=== PATIENT | male | born 1950 | race African-American/Black ===

== ENCOUNTER 2017-07-02 13:16 | Inpatient (IN) | payer OTHER, MEDICAID, MEDICARE ==
--- NOTE | 2017-07-02 13:23 | ED Physician Chart ---
ED Chief Complaint/HPI - Patient Information Date Seen:: 07/02/17 Time Seen:: 13:15 Chief Complaint:: Failure to Thrive History of Present Illness:: onset x one week of failure to thrive, weakness, and dizziness; no report of trauma, LOC, ALOC, AMS, H/As, neck pain, C/P, SOB, Abd/Flank Pain, A/N/V/D/C, fever, chills, or urinary s/s Historian:: Patient, EMS Review:: Nurse's Note Reviewed, EMS run form Reviewed ED Review of Systems - Review of Systems General/Constitutional: Fever, No chills, No weight loss, No weakness, No diaphoresis, No edema, No loss of appetite Skin: No skin lesions, No rash, No bruising Head: No headache, No light-headedness Eyes: No loss of vision, No pain, No diplopia ENT: No earache, No nasal drainage, No sore throat, No tinnitus Neck: No neck pain, No swelling, No thyromegaly, No stiffness, No mass noted Cardio Vascular: No chest pain, No palpitations, No PND, No orthopnea, No edema Pulmonary: No SOB, No cough, No sputum, No wheezing GI: No nausea, No vomiting, No diarrhea, No pain, No melena, No hematochezia, No constipation, No hematemesis G/U: No dysuria, No frequency, No hematuria Musculoskeletal: No bone or joint pain, No back pain, No muscle pain Endocrine: Polyuria, Polydipsia Psychiatric: No prior psych history, No depression, No anxiety, No suicidal ideation Hematopoietic: No bruising, No lymphadenopathy Allergic/Immuno: No urticaria, No angioedema Neurological: No syncope, No focal symptoms, Weakness, No paresthesia, Headache , No seizure, Dizziness, Confusion, Vertigo ED Past Medical History - Past Medical History Obtainable: Yes Past Medical History: HTN, DM, Other (UTI; Spinal Stenosis) Family History: Diabetes Melitus, HTN Social History: Non Smoker, No Alcohol, No Drug Use, Single, Care Facility Surgical History: None Psychiatricy History: None Medication: Reviewed ED Physical Exam - Physical Examination General/Constitutional: Awake, Well-developed, well-nourished, Alert, No distress, GCS 15, Non-toxic appearing, Ambulatory Head: Atraumatic Eyes: Lids, conjuctiva normal, PERRL, EOMI Skin: Nl inspection, No rash, No skin lesions, No ecchymosis, Well hydrated, No lymphadenopathy ENMT: External ears, nose nl, Nasal exam nl, Lips, teeth, gums nl Neck: Nontender, Full ROM w/o pain, No JVD, No nuchal rigidity, No bruit, No mass, No stridor Respiratory: Nl effort/Exclusion, Clear to Auscultation, No Wheeze/Rhonchi/Rales Cardio Vascular: RRR, No murmur, gallop, rubs, NL S1 S2 GI: No tenderness/rebounding/guarding, No organomegaly, No hernia, Normal BS's, Nondistended, No mass/bruits, No McBurney tenderness : No CVA tenderness Extremities: No tenderness or effusion, Full ROM, normal strength in all extremities, No edema, Normal digits & nails Neuro/Psych: Alert/oriented, DTR's symmetric, Normal sensory exam, Normal motor strength, Judgement/insight normal, Mood normal, Normal gait, No focal deficits Misc: Normal back, No paraspinal tenderness ED Septic Shock - . Is Septic Shock (SBP<90, OR Lactate>4 mmol\L) present?: No ED Reassessment (Disposition) - Reassessment Reassessment Condition:: Improved - Diagnosis Diagnosis:: UTI; Urosepsis; Sepsis; Dehydration - Aftercare/Follow up Instructions Aftercare/Follow-Up Instructions:: Counseled pt regarding lab results/diagnosis & need follow up, Counseled pt & family regarding lab results/diagnosis & need follow up - Patient Disposition Discharge/Transfer:: Acute Care w/in this hosp Accepting Physician:: Dr. Davis Time Called:: [id number] Time Responded:: 13:45 Admitted to:: Med/Surg Spoke to:: Dr. Davis Admitting Medical Physician:: Dr. Davis Condition at Disposition:: Stable, Improved
[2017-07-02] MEDS ORDERED: Sodium Chloride 0.9% 1,000 ML IV ONE (13:26)
[2017-07-02 13:40] LABS: % BASOPHILS 0.7 % (0.0-2.0); % EOSINOPHILS 6.7 % (0.0-5.0); % LYMPHOCYTES 36.1 % (20.0-50.0); % MONOCYTES 8.1 % (2.0-10.0); % NEUTROPHILS 48.4 % (40.0-80.0); HEMATOCRIT 39.1 % (41.0-60); MEAN CELL VOLUME 86.9 fl (80-99); MEAN CORPUSCULAR HGB CONC 33.3 pg (28.0-36.0); MEAN PLATELET VOLUME 7.4 fl; NEUTROPHILE ABSOLUTE 2.4 Th/cmm (1.8-8.0); PLATELET COUNT 289 Th/cmm (150-400); RED CELL DISTRIBUTION WIDTH 13.2 % (11.5-20.0); WHITE BLOOD COUNT 4.9 Th/cmm (4.8-10.8)
--- NOTE | 2017-07-02 13:53 | Diagnostic Imaging Report ---
Portable chest x-ray History: Pain Allowing for portable technique the heart size is normal. No focal pulmonary parenchymal processes. No hilar or mediastinal abnormalities. Degenerative changes seen throughout the spine. Impression: No acute abnormalities.
[2017-07-02 13:55] LABS: INR 1.22 (0.5-1.4); PROTHROMBIN TIME (TEST) 12.8 SECONDS (9.5-11.5)
[2017-07-02] MEDS ORDERED: cefTRIAXone 1 GM in Sodium Chloride 0.9% 50 ML IV ONE (13:55)
[2017-07-02 13:59] LABS: ALB/GLOB RATIO 1.2 (1.0-1.8); ALKALINE PHOSPHATASE 74 U/L (34-104); ANION GAP 6.6 (7.0-16.0); BUN - UREA NITROGEN 25 mg/dL (7-25); BUN/CREATININE RATIO 31.3; CALCIUM SERUM 9.4 mg/dL (8.6-10.3); CARBON DIOXIDE 27.9 mEq/L (21.0-31.0); CHLORIDE 105 mEq/L (98-107); CHOLESTEROL 111 mg/dL (<200); CREATININE - SERUM 0.8 mg/dL (0.7-1.3); GLUCOSE 127 mg/dL (70-105); POTASSIUM SERUM 3.5 mEq/L (3.5-5.1); SGOT 32 U/L (13-39); SGPT/ALT 38 U/L (7-52); SODIUM SERUM 136 mEq/L (136-145); TRIGLYCERIDES 78 mg/dL (<150)
[2017-07-02 15:22] LABS: URINE BILIRUBIN NEGATIVE (NEGATIVE); URINE BLOOD SMALL (NEGATIVE); URINE GLUCOSE (UA) NEGATIVE (NEGATIVE); URINE KETONE NEGATIVE (NEGATIVE); URINE PROTEIN 100 mg/dL (NEGATIVE); URINE UROBILINOGEN 0.2 E.U./dL (0.2 - 1.0)
[2017-07-02 15:30] LABS: URINE COLOR YELLOW; URINE EPITHELIAL CELLS FEW /lpf (FEW)
[2017-07-02 15:31] LABS: URINE BACTERIA MANY /hpf (NONE SEEN); URINE WBC >100 /hpf (0-5)
[2017-07-02] MEDS ORDERED: Hydrocodone/APAP 10 mg/325 mg Tab PO PRN (17:00)
[2017-07-02] MEDS ORDERED: D5-0.45NS 1,000 ML IV SCH (17:15)
[2017-07-02] MEDS ORDERED: Pneumococcal Vaccine 0.5 mL Vial IM ONE (18:00)
--- NOTE | 2017-07-02 20:16 | History and Physical ---
History of Present Illness - HPI Chief Complaint: failure to thrive,weakness and dizziness for 1 wk HPI: resident of [facility]. 66 year old male , bed bound was feeling weak and dizzy for a week and c/o og burning urination and frequency. 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 No fever. Urine was cloudy with sediments and was referred to ER. Last month he was admitted at [facility] and was treated for UTI. During that admission patient was treated for scabies. Now here for generalised weakness, and UTI. 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 FHX DM-2, HTN Social Hx single, nonsmoker, resident of [facility] Psych Hx Negative Vital Signs: Last Vital Signs Temp 98 F 07/02/17 17:17 Pulse 70 07/02/17 17:17 Resp 17 07/02/17 17:17 BP 115/70 07/02/17 17:17 Pulse Ox 98 07/02/17 17:17 Family Medical History - Family Member Mother History Unknown: Yes Social History Smoke: No Alcohol: None Drugs: None Lives: [facility] Domestic Violence: Negative - Medications Home Medications: Home Medication Medication Instructions Recorded Type Acetaminophen [Tylenol Extra 1,000 mg PO Q4HR PRN 07/02/17 History Strength] Acetaminophen [Tylenol] 650 mg PO Q4HR PRN 07/02/17 History Aspirin [Aspirin Chewable] 81 mg PO DAILY 07/02/17 History Atorvastatin Calcium [Lipitor] 80 mg PO HS 07/02/17 History Bisacodyl [Dulcolax 10 Mg Supp] 10 mg RC DAILY PRN 07/02/17 History Cephalexin [Keflex] 500 mg PO QID 07/02/17 History Cranberry Fruit Concentrate 450 mg PO DAILY 07/02/17 History [Cranberry] Docusate Sodium [Colace] 100 mg PO DAILY 07/02/17 History Finasteride [Proscar*] 5 mg PO DAILY 07/02/17 History Fleet Enema [Fleet Enema] 135 ml RC Q48H PRN 07/02/17 History Magnesium Hydroxide [Milk of 30 ml PO HS 07/02/17 History Magnesia] Metoprolol Tartrate [Lopressor] 12.5 mg PO Q12H 07/02/17 History Tamsulosin HCl [Flomax] 0.8 mg PO DAILY 07/02/17 History - Allergies Allergies/Adverse Reactions: Allergies Allergy/AdvReac Type Severity Reaction Status Date / Time No Known Allergies Allergy Verified 07/02/17 13:38 Review of Systems - Review of Systems Review of Systems: Neurological no syncope, dizziness present, weakness present General on and off fever, no chills, weakness for 1 wk skin rash on the left upper exxtrimity Head no headache vision no change ENT no earache neck no neck pain G/U dysuria, polyuria and polydipsia Allergic no urticaria Constitutional: Report: No Significant (none) Eyes: Report: No Significant (none) ENT: Report: No Significant (none) Respiratory: Report: No Significant (none), Cough, Dry, Shortness of Breath, Hemoptysis, SOB with Excertion, Pleuritic Pain, Sputum, Wheezing, Other Cardiovascular: Report: No Significant (none), Chest Pain, Palpitations, Orthopnea, Paroxysmal Noc. Dyspnea, Edema, Light Headedness, Other Gastrointestinal: Report: No Significant (none), Nausea, Vomiting, Abdominal Pain, Diarrhea, Constipation, Melena, Hematochezia, Other Genitourinary: Report: Dysuria (dysuria) Musculoskeletal: Report: Other (weakness) Skin: Report: Rash (noted) Neurological: Report: No Significant (alert ) Physical Exam - Physical Exam HEENT: Report: Ears Nose Throat within normal limits, Pharnyx within normal limits (normal), Ectectic Sclera, Pale Conjunctiva, Purulent Nasal Drainage, Pharyngeal Erythema and Exudates Noted Neck: Report: Within normal limits Cardiovascular Systems: Report: Regular, Rate and Rhythm, no murmurs noted Respiratory: Report: Breath Sounds are within normal limits, Clear to Auscultation of lung landry (normal) Abdomen: Report: Non-tender to palpation (normal), Bowel Sounds are within normal limits (normal) Back: Report: Inspection of back is within normal limits., CVA Tenderness noted on the right flank (none), CVA Tenderness noted on the left flank (none) Extremities: Report: Non-tender to palpation., Patient had full range of motion , No pedal edema was noted on inspection (patient has rightsided weakness due to stroke) Skin: Report: Skin Rash noted (left upper extrimity rash noted) Neuro/Psych: Report: Mood affect is within normal limits (alert, oriented, verbal with slurred spech), A+Ox3, CN II-XII intact, No sensory deficit - Lab Results All Lab Results last 24 hours: Laboratory Last Values WBC 4.9 Th/cmm (4.8-10.8) 07/02/17 13:33 RBC 4.50 Mil/cmm (4.30-5.70) 07/02/17 13:33 Hgb 13.0 gm/dL (12-16) 07/02/17 13:33 Hct 39.1 % (41.0-60) L 07/02/17 13:33 MCV 86.9 fl (80-99) 07/02/17 13:33 MCH 29.0 pg (26.0-30.0) 07/02/17 13:33 MCHC Differential 33.3 pg (28.0-36.0) 07/02/17 13:33 RDW 13.2 % (11.5-20.0) 07/02/17 13:33 Plt Count 289 Th/cmm (150-400) 07/02/17 13:33 MPV 7.4 fl 07/02/17 13:33 Neutrophils % 48.4 % (40.0-80.0) 07/02/17 13:33 Lymphocytes % 36.1 % (20.0-50.0) 07/02/17 13:33 Monocytes % 8.1 % (2.0-10.0) 07/02/17 13:33 Eosinophils % 6.7 % (0.0-5.0) H 07/02/17 13:33 Basophils % 0.7 % (0.0-2.0) 07/02/17 13:33 PT 12.8 SECONDS (9.5-11.5) H 07/02/17 13:33 INR 1.22 (0.5-1.4) 07/02/17 13:33 PTT (Actin FS) 27.6 SECONDS (26.0-38.0) 07/02/17 13:33 Sodium 136 mEq/L (136-145) 07/02/17 13:33 Potassium 3.5 mEq/L (3.5-5.1) 07/02/17 13:33 Chloride 105 mEq/L (98-107) 07/02/17 13:33 Carbon Dioxide 27.9 mEq/L (21.0-31.0) 07/02/17 13:33 Anion Gap 6.6 (7.0-16.0) L 07/02/17 13:33 BUN 25 mg/dL (7-25) 07/02/17 13:33 Creatinine 0.8 mg/dL (0.7-1.3) 07/02/17 13:33 Est GFR ( Amer) > 60.0 ml/min (>90) 07/02/17 13:33 Est GFR (Non-Af Amer) > 60.0 ml/min 07/02/17 13:33 BUN/Creatinine Ratio 31.3 07/02/17 13:33 Glucose 127 mg/dL (70-105) H 07/02/17 13:33 Whole Bld Lactic Acid 0.58 mmol/L (0.60-1.99) L 07/02/17 13:33 Calcium 9.4 mg/dL (8.6-10.3) 07/02/17 13:33 Total Bilirubin 1.0 mg/dL (0.3-1.0) 07/02/17 13:33 AST 32 U/L (13-39) 07/02/17 13:33 ALT 38 U/L (7-52) 07/02/17 13:33 Alkaline Phosphatase 74 U/L (34-104) 07/02/17 13:33 Creatine Kinase 168 U/L (30-223) 07/02/17 13:33 Troponin I < 0.01 ng/mL (0.01-0.05) L 07/02/17 13:33 C-Reactive Protein 0.7 mg/dL (0.0-0.9) 07/02/17 13:33 B-Natriuretic Peptide < 5.0 pg/mL (5.0-100.0) L 07/02/17 13:33 Total Protein 6.4 gm/dL (6.0-8.3) 07/02/17 13:33 Albumin 3.5 gm/dL (4.2-5.5) L 07/02/17 13:33 Globulin 2.9 gm/dL 07/02/17 13:33 Albumin/Globulin Ratio 1.2 (1.0-1.8) 07/02/17 13:33 Triglycerides 78 mg/dL (<150) 07/02/17 13:33 Cholesterol 111 mg/dL (<200) 07/02/17 13:33 LDL Cholesterol Direct 63 mg/dL (75-193) L 07/02/17 13:33 HDL Cholesterol 36 mg/dL (23-92) 07/02/17 13:33 Urine Source CLEAN C 07/02/17 14:21 Urine Color YELLOW 07/02/17 14:21 Urine Clarity CLOUDY (CLEAR) 07/02/17 14:21 Urine pH 6.0 (4.6 - 8.0) 07/02/17 14:21 Ur Specific [place] 1.025 (1.005-1.030) 07/02/17 14:21 Urine Protein 100 mg/dL (NEGATIVE) H 07/02/17 14:21 Urine Glucose (UA) NEGATIVE mg/dL (NEGATIVE) 07/02/17 14:21 Urine Ketones NEGATIVE mg/dL (NEGATIVE) 07/02/17 14:21 Urine Blood SMALL (NEGATIVE) H 07/02/17 14:21 Urine Nitrate NEGATIVE (NEGATIVE) 07/02/17 14:21 Urine Bilirubin NEGATIVE (NEGATIVE) 07/02/17 14:21 Urine Urobilinogen 0.2 E.U./dL (0.2 - 1.0) 07/02/17 14:21 Ur Leukocyte Esterase MODERATE (NEGATIVE) H 07/02/17 14:21 Urine RBC 2-5 /hpf (0-5) H 07/02/17 14:21 Urine WBC >100 /hpf (0-5) H 07/02/17 14:21 Ur Epithelial Cells FEW /lpf (FEW) 07/02/17 14:21 Urine Bacteria MANY /hpf (NONE SEEN) 07/02/17 14:21 - Assessment Assessment: Current Active Problems Problem Status Onset R/O UTI, POOR ORAL INTAKE Acute - Plan Plan: continue fluid management antibiotics as per ID ID consult Dr Matt Pepe Diet soft mechanical, feeder 1:1 Urine culture to follow
[2017-07-02] MEDS: D5-0.45NS 1,000 ML IV SCH (20:31)
[2017-07-03] MEDS: D5-0.45NS 1,000 ML IV SCH ×2 (05:37→18:29)
[2017-07-03 09:11] LABS: % BASOPHILS 2.7 % (0.0-2.0); % EOSINOPHILS 5.2 % (0.0-5.0); % LYMPHOCYTES 30.7 % (20.0-50.0); % MONOCYTES 6.3 % (2.0-10.0); % NEUTROPHILS 55.1 % (40.0-80.0); HEMATOCRIT 36.8 % (41.0-60); HEMOGLOBIN 12.6 gm/dL (12-16); MEAN CELL VOLUME 85.6 fl (80-99); MEAN CORPUSCULAR HEMOGLOBIN 29.2 pg (26.0-30.0); MEAN CORPUSCULAR HGB CONC 34.1 pg (28.0-36.0); MEAN PLATELET VOLUME 7.4 fl; NEUTROPHILE ABSOLUTE 2.7 Th/cmm (1.8-8.0); PLATELET COUNT 276 Th/cmm (150-400); RED BLOOD COUNT 4.29 Mil/cmm (4.30-5.70); RED CELL DISTRIBUTION WIDTH 13.1 % (11.5-20.0); WHITE BLOOD COUNT 4.8 Th/cmm (4.8-10.8)
[2017-07-03 09:36] LABS: ALB/GLOB RATIO 1.1 (1.0-1.8); ALKALINE PHOSPHATASE 69 U/L (34-104); ANION GAP 7.5 (7.0-16.0); BILIRUBIN,TOTAL 0.8 mg/dL (0.3-1.0); BUN - UREA NITROGEN 22 mg/dL (7-25); BUN/CREATININE RATIO 27.5; CALCIUM SERUM 8.9 mg/dL (8.6-10.3); CARBON DIOXIDE 28.2 mEq/L (21.0-31.0); CHLORIDE 106 mEq/L (98-107); CREATININE - SERUM 0.8 mg/dL (0.7-1.3); GLUCOSE 134 mg/dL (70-105); POTASSIUM SERUM 3.7 mEq/L (3.5-5.1); SGOT 27 U/L (13-39); SGPT/ALT 34 U/L (7-52); SODIUM SERUM 138 mEq/L (136-145)
[2017-07-03] MEDS: INSULIN ASPART SLIDING SCALE 100 UNITS/ML UNIT SUBQ SCH ×2 (09:40→18:38)
--- NOTE | 2017-07-03 11:05 | General Progress Note ---
Subjective - Review of Systems Service Date: 07/03/17 Subjective: Awake, alert. NAD. Lying in the bed. eating mechanical soft diet well. Accuchecks decresed to once a day. Objective - Results Result Diagrams: 07/03/17 08:50 07/03/17 08:50 Recent Labs: Laboratory Last Values WBC 4.8 Th/cmm (4.8-10.8) 07/03/17 08:50 RBC 4.29 Mil/cmm (4.30-5.70) L 07/03/17 08:50 Hgb 12.6 gm/dL (12-16) 07/03/17 08:50 Hct 36.8 % (41.0-60) L 07/03/17 08:50 MCV 85.6 fl (80-99) 07/03/17 08:50 MCH 29.2 pg (26.0-30.0) 07/03/17 08:50 MCHC Differential 34.1 pg (28.0-36.0) 07/03/17 08:50 RDW 13.1 % (11.5-20.0) 07/03/17 08:50 Plt Count 276 Th/cmm (150-400) 07/03/17 08:50 MPV 7.4 fl 07/03/17 08:50 Neutrophils % 55.1 % (40.0-80.0) 07/03/17 08:50 Lymphocytes % 30.7 % (20.0-50.0) 07/03/17 08:50 Monocytes % 6.3 % (2.0-10.0) 07/03/17 08:50 Eosinophils % 5.2 % (0.0-5.0) H 07/03/17 08:50 Basophils % 2.7 % (0.0-2.0) H 07/03/17 08:50 PT 12.8 SECONDS (9.5-11.5) H 07/02/17 13:33 INR 1.22 (0.5-1.4) 07/02/17 13:33 PTT (Actin FS) 27.6 SECONDS (26.0-38.0) 07/02/17 13:33 Sodium 138 mEq/L (136-145) 07/03/17 08:50 Potassium 3.7 mEq/L (3.5-5.1) 07/03/17 08:50 Chloride 106 mEq/L (98-107) 07/03/17 08:50 Carbon Dioxide 28.2 mEq/L (21.0-31.0) 07/03/17 08:50 Anion Gap 7.5 (7.0-16.0) 07/03/17 08:50 BUN 22 mg/dL (7-25) 07/03/17 08:50 Creatinine 0.8 mg/dL (0.7-1.3) 07/03/17 08:50 Est GFR ( Amer) > 60.0 ml/min (>90) 07/03/17 08:50 Est GFR (Non-Af Amer) > 60.0 ml/min 07/03/17 08:50 BUN/Creatinine Ratio 27.5 07/03/17 08:50 Glucose 134 mg/dL (70-105) H 07/03/17 08:50 POC Glucose 118 MG/DL (70 - 105) H 07/03/17 09:35 Whole Bld Lactic Acid 0.58 mmol/L (0.60-1.99) L 07/02/17 13:33 Calcium 8.9 mg/dL (8.6-10.3) 07/03/17 08:50 Total Bilirubin 0.8 mg/dL (0.3-1.0) 07/03/17 08:50 AST 27 U/L (13-39) 07/03/17 08:50 ALT 34 U/L (7-52) 07/03/17 08:50 Alkaline Phosphatase 69 U/L (34-104) 07/03/17 08:50 Creatine Kinase 168 U/L (30-223) 07/02/17 13:33 Troponin I < 0.01 ng/mL (0.01-0.05) L 07/02/17 13:33 C-Reactive Protein 0.7 mg/dL (0.0-0.9) 07/02/17 13:33 B-Natriuretic Peptide < 5.0 pg/mL (5.0-100.0) L 07/02/17 13:33 Total Protein 6.2 gm/dL (6.0-8.3) 07/03/17 08:50 Albumin 3.3 gm/dL (4.2-5.5) L 07/03/17 08:50 Globulin 2.9 gm/dL 07/03/17 08:50 Albumin/Globulin Ratio 1.1 (1.0-1.8) 07/03/17 08:50 Triglycerides 78 mg/dL (<150) 07/02/17 13:33 Cholesterol 111 mg/dL (<200) 07/02/17 13:33 LDL Cholesterol Direct 63 mg/dL (75-193) L 07/02/17 13:33 HDL Cholesterol 36 mg/dL (23-92) 07/02/17 13:33 Urine Source CLEAN C 07/02/17 14:21 Urine Color YELLOW 07/02/17 14:21 Urine Clarity CLOUDY (CLEAR) 07/02/17 14:21 Urine pH 6.0 (4.6 - 8.0) 07/02/17 14:21 Ur Specific [place] 1.025 (1.005-1.030) 07/02/17 14:21 Urine Protein 100 mg/dL (NEGATIVE) H 07/02/17 14:21 Urine Glucose (UA) NEGATIVE mg/dL (NEGATIVE) 07/02/17 14:21 Urine Ketones NEGATIVE mg/dL (NEGATIVE) 07/02/17 14:21 Urine Blood SMALL (NEGATIVE) H 07/02/17 14:21 Urine Nitrate NEGATIVE (NEGATIVE) 07/02/17 14:21 Urine Bilirubin NEGATIVE (NEGATIVE) 07/02/17 14:21 Urine Urobilinogen 0.2 E.U./dL (0.2 - 1.0) 07/02/17 14:21 Ur Leukocyte Esterase MODERATE (NEGATIVE) H 07/02/17 14:21 Urine RBC 2-5 /hpf (0-5) H 07/02/17 14:21 Urine WBC >100 /hpf (0-5) H 07/02/17 14:21 Ur Epithelial Cells FEW /lpf (FEW) 07/02/17 14:21 Urine Bacteria MANY /hpf (NONE SEEN) 07/02/17 14:21 - Physical Exam Vitals and I&O: Vital Signs Temp 98.2 F 07/03/17 04:00 Pulse 69 07/03/17 04:00 Resp 19 07/03/17 04:00 BP 129/72 07/03/17 04:00 Pulse Ox 98 07/03/17 04:00 Intake & Output 07/02/17 07/03/17 07/03/17 18:59 06:59 18:59 Intake Total 815 Output Total 200 350 Balance -200 465 Weight (lbs) 72.575 kg 78.562 kg Intake: Intake, IV Amount 815 D5-0.45NS 1,000 ml @ 100 815 mls/hr IV .Q10H [facility] Rx#: [id number] Output: Urine 200 350 Active Medications: Current Medications Acetaminophen (Tylenol) 650 mg PO Q4H PRN PRN Reason: fever Stop: 08/31/17 15:52 Acetaminophen/Hydrocodone Bitart ([place] 10 Mg/325 Mg) 1 tab PO Q6H PRN PRN Reason: Severe Pain Stop: 08/31/17 16:59 Dextrose/Sodium Chloride (D5-0.45ns) 1,000 mls @ 100 mls/hr IV .Q10H [facility] Stop: 08/31/17 17:14 Last Admin: 07/03/17 05:37 Dose: 100 mls/hr Ceftriaxone Sodium 1 gm/ (Sodium Chloride) 50 mls @ 100 mls/hr IV Q24HR [facility] Stop: 09/01/17 10:59 Ibuprofen (Motrin) 800 mg PO Q8H PRN PRN Reason: moderate pain Stop: 08/31/17 15:52 Insulin Aspart (Novolog Insulin Sliding Scale) 0 units SUBQ BID [facility] PRN Reason: Protocol Stop: 08/31/17 16:59 Last Admin: 07/03/17 09:40 Dose: Not Given General: Alert (yes), Oriented x3 (yes), No acute distress (no) HEENT: Atraumatic, PERRLA, EOMI Neck: Supple Cardiovascular: Regular rate, Normal S1, Normal S2 Lungs: Clear to auscultation Abdomen: Bowel sounds (normal) Extremities: Clubbing (no), Cyanosis (no), Edema (no) Neurological: Other (left sided weakness, and slurred speech) Skin: Other (old lesions on the left arm) Assessment/Plan - Problem List Patient Problems: All Active Problems R/O UTI, POOR ORAL INTAKE (Acute) - Assessment Assessment: Current Active Problems Problem Status Onset R/O UTI, POOR ORAL INTAKE Acute 1. UTI /Pyelonephritis 2. Dehydration 3. History of CVA 4. Recent history of UTI 5. Spinal stenosis - Plan Plan: continue fluid management antibiotics as per ID ID consult Dr Matt Pepe Diet soft mechanical, feeder 1:1 Urine culture to follow
[2017-07-03] MEDS: cefTRIAXone 1 GM in Sodium Chloride 0.9% 50 ML IV SCH (13:34)
--- NOTE | 2017-07-03 13:38 | Consultation ---
Consult Note - Consult Note Service Date: 07/03/17 Referring Physician: Darryl Osborne Consult Note: PHYSICIAN Consultation Note: Date of Admission: 07/02/17 Purpose of Consultation: UTI. Chief Complaint: Dysuria & GENERALIZED WEAKNESS. History of Present Illness: 66-year-old male with a past medical history of CVA, diabetes mellitus type 2, hypertension, spinal stenosis presented to the ER with a dysuria and generalized weakness. He also felt dizzy. On initial evaluation his temperature was 98.1F and WBC count was 4900. Urinalysis showed WBC count more than 100 and many bacteria. Patient was started on Rocephin. ID consult was called for further antibiotic management. Past Medical History: Stroke, lacunar infarct SEEN IN AUGUST 2014 AND NOVEMBER 2015, HYPERTENSION, DIABETES MELLITUS TYPE 2, SPINAL STENOSIS. Diagnoses HYPOTHYROIDISM, UNSPECIFIED (07/02/17) TYPE 2 DIABETES MELLITUS WITHOUT COMPLICATIONS (07/02/17) ESSENTIAL (PRIMARY) HYPERTENSION (07/02/17) SPINAL STENOSIS, SITE UNSPECIFIED (07/02/17) URINARY TRACT INFECTION, SITE NOT SPECIFIED (07/02/17) WEAKNESS (07/02/17) ADULT FAILURE TO THRIVE (07/02/17) PRSNL HX OF TIA (TIA), AND CEREB INFRC W/O RESID DEFICITS (07/02/17) Allergies Allergy/AdvReac Type Severity Reaction Status Date / Time No Known Allergies Allergy Verified 07/02/17 13:38 Vital Signs Temp 97.7 F 07/03/17 12:00 Pulse 73 07/03/17 12:00 Resp 16 07/03/17 12:00 BP 135/73 07/03/17 12:00 Pulse Ox 98 07/03/17 12:00 Intake & Output 07/02/17 07/03/17 07/03/17 18:59 06:59 18:59 Intake Total 815 Output Total 200 350 Balance -200 465 Weight (lbs) 72.575 kg 78.562 kg Intake: Intake, IV Amount 815 D5-0.45NS 1,000 ml @ 100 815 mls/hr IV .Q10H [facility] Rx#: [id number] Output: Urine 200 350 Laboratory Results - last 24 hr 07/03/17 07/03/17 07/03/17 08:50 08:50 09:35 WBC 4.8 RBC 4.29 L Hgb 12.6 Hct 36.8 L MCV 85.6 MCH 29.2 MCHC Differential 34.1 RDW 13.1 Plt Count 276 MPV 7.4 Neutrophils % 55.1 Lymphocytes % 30.7 Monocytes % 6.3 Eosinophils % 5.2 H Basophils % 2.7 H Sodium 138 Potassium 3.7 Chloride 106 Carbon Dioxide 28.2 Anion Gap 7.5 BUN 22 Creatinine 0.8 Est GFR ( Amer) > 60.0 Est GFR (Non-Af Amer) > 60.0 BUN/Creatinine Ratio 27.5 Glucose 134 H POC Glucose 118 H Calcium 8.9 Total Bilirubin 0.8 AST 27 ALT 34 Alkaline Phosphatase 69 Total Protein 6.2 Albumin 3.3 L Globulin 2.9 Albumin/Globulin Ratio 1.1 Home Medication Medication Instructions Recorded Type Acetaminophen [Tylenol Extra 1,000 mg PO Q4HR PRN 07/02/17 History Strength] Acetaminophen [Tylenol] 650 mg PO Q4HR PRN 07/02/17 History Aspirin [Aspirin Chewable] 81 mg PO DAILY 07/02/17 History Atorvastatin Calcium [Lipitor] 80 mg PO HS 07/02/17 History Bisacodyl [Dulcolax 10 Mg Supp] 10 mg RC DAILY PRN 07/02/17 History Cephalexin [Keflex] 500 mg PO QID 07/02/17 History Cranberry Fruit Concentrate 450 mg PO DAILY 07/02/17 History [Cranberry] Docusate Sodium [Colace] 100 mg PO DAILY 07/02/17 History Finasteride [Proscar*] 5 mg PO DAILY 07/02/17 History Fleet Enema [Fleet Enema] 135 ml RC Q48H PRN 07/02/17 History Magnesium Hydroxide [Milk of 30 ml PO HS 07/02/17 History Magnesia] Metoprolol Tartrate [Lopressor] 12.5 mg PO Q12H 07/02/17 History Tamsulosin HCl [Flomax] 0.8 mg PO DAILY 07/02/17 History Current Medications Generic Name Dose Route Start Last Admin Trade Name Freq PRN Reason Stop Dose Admin Acetaminophen 650 mg 07/02/17 15:53 Tylenol PO 08/31/17 15:52 Q4H PRN fever Acetaminophen/Hydrocodone Bitart 1 tab 07/02/17 17:00 [place] 10 Mg/325 Mg PO 08/31/17 16:59 Q6H PRN Severe Pain Dextrose/Sodium Chloride 1,000 mls @ 100 mls/hr 07/02/17 18:16 07/03/17 05:37 D5-0.45ns IV 08/31/17 17:14 100 mls/hr .Q10H [facility] Administration Ceftriaxone Sodium 1 gm/ 50 mls @ 100 mls/hr 07/03/17 12:00 Sodium Chloride IV 09/01/17 11:59 Q24HR@0900 [facility] Ibuprofen 800 mg 07/02/17 15:53 Motrin PO 08/31/17 15:52 Q8H PRN moderate pain Insulin Aspart 0 units 07/02/17 17:00 07/03/17 09:40 Novolog Insulin Sliding Scale SUBQ 08/31/17 16:59 Not Given BID [facility] Protocol Review of Systems: A 12 point ROS was reviewed with the pertinent positive and negatives noted in the HPI. Social History Smoking Status Former smoker Drug Use No Alcohol Use No Family Medical History Unknown. Physical Exam: General: Comfortable lying in bed not in acute distress. HEENT: Head: Normocephalic. Atraumatic. Oral cavity: Moist, pink tongue. Eyes : No pallor and icterus. Neck: Supple, no JVD, no use of XI muscle. Cardio: S1 and S2 within normal limits regular rhythm. Respiratory: Vesicular breath sound, no crackles no wheezing. Abdominal: Soft, nontender nondistended, bowel sounds present Genital/Urinary: Deferred Extremities: N CCE. Neurological: Alert, awake, oriented 3. Assessment: 1. UTI. Pyelonephritis. 2. Generalized weakness. 3. Diabetes mellitus type 2. 4. Hypertension. 5. History of CVA. 6. Rash, utchy, suspect scabies. Plan: Continue Rocephin. Get renal ultrasound. check skin scrapping. Elimite X 1, Thank you, Dr Monet for involving me in taking care of this patient. Signed, Ibrahima Pepe M.D. [id number]
[2017-07-03] MEDS ORDERED: VTE Chemical Prophylaxis Screen/Admission MC PRN (15:14)
[2017-07-04] MEDS: D5-0.45NS 1,000 ML IV SCH ×3 (02:06→20:00)
--- NOTE | 2017-07-04 08:03 | Diagnostic Imaging Report ---
Exam: Renal ultrasound. HISTORY: Pyelonephritis Findings: Real-time ultrasound summation kidneys performed multiple planes. The study demonstrates normal just kidneys bilaterally. There is no evidence of obstructive uropathy or nephrolithiasis. Right kidney measures 10.7 x 4.9 x 5.7 cm Left kidney measures 9.6 x 4.3 x 5.4 cm. The urinary bladder is normal. For catheter is noted. Incidentally noted enlarged prostate gland measuring 5.7 cm. IMPRESSION: Essentially unremarkable examination of kidneys
[2017-07-04] MEDS: cefTRIAXone 1 GM in Sodium Chloride 0.9% 50 ML IV SCH (11:33)
[2017-07-04] MEDS: INSULIN ASPART SLIDING SCALE 100 UNITS/ML UNIT SUBQ SCH (11:42)
--- NOTE | 2017-07-04 14:01 | General Progress Note ---
Subjective - Review of Systems Service Date: 07/04/17 Subjective: Awake, alert, had elimite cream application x1 for the rash. NAD, Afebrile Objective - Results Result Diagrams: 07/03/17 08:50 07/03/17 08:50 Recent Labs: Laboratory Last Values WBC 4.8 Th/cmm (4.8-10.8) 07/03/17 08:50 RBC 4.29 Mil/cmm (4.30-5.70) L 07/03/17 08:50 Hgb 12.6 gm/dL (12-16) 07/03/17 08:50 Hct 36.8 % (41.0-60) L 07/03/17 08:50 MCV 85.6 fl (80-99) 07/03/17 08:50 MCH 29.2 pg (26.0-30.0) 07/03/17 08:50 MCHC Differential 34.1 pg (28.0-36.0) 07/03/17 08:50 RDW 13.1 % (11.5-20.0) 07/03/17 08:50 Plt Count 276 Th/cmm (150-400) 07/03/17 08:50 MPV 7.4 fl 07/03/17 08:50 Neutrophils % 55.1 % (40.0-80.0) 07/03/17 08:50 Lymphocytes % 30.7 % (20.0-50.0) 07/03/17 08:50 Monocytes % 6.3 % (2.0-10.0) 07/03/17 08:50 Eosinophils % 5.2 % (0.0-5.0) H 07/03/17 08:50 Basophils % 2.7 % (0.0-2.0) H 07/03/17 08:50 PT 12.8 SECONDS (9.5-11.5) H 07/02/17 13:33 INR 1.22 (0.5-1.4) 07/02/17 13:33 PTT (Actin FS) 27.6 SECONDS (26.0-38.0) 07/02/17 13:33 Sodium 138 mEq/L (136-145) 07/03/17 08:50 Potassium 3.7 mEq/L (3.5-5.1) 07/03/17 08:50 Chloride 106 mEq/L (98-107) 07/03/17 08:50 Carbon Dioxide 28.2 mEq/L (21.0-31.0) 07/03/17 08:50 Anion Gap 7.5 (7.0-16.0) 07/03/17 08:50 BUN 22 mg/dL (7-25) 07/03/17 08:50 Creatinine 0.8 mg/dL (0.7-1.3) 07/03/17 08:50 Est GFR ( Amer) > 60.0 ml/min (>90) 07/03/17 08:50 Est GFR (Non-Af Amer) > 60.0 ml/min 07/03/17 08:50 BUN/Creatinine Ratio 27.5 07/03/17 08:50 Glucose 134 mg/dL (70-105) H 07/03/17 08:50 POC Glucose 109 MG/DL (70 - 105) H 07/03/17 18:36 Whole Bld Lactic Acid 0.58 mmol/L (0.60-1.99) L 07/02/17 13:33 Calcium 8.9 mg/dL (8.6-10.3) 07/03/17 08:50 Total Bilirubin 0.8 mg/dL (0.3-1.0) 07/03/17 08:50 AST 27 U/L (13-39) 07/03/17 08:50 ALT 34 U/L (7-52) 07/03/17 08:50 Alkaline Phosphatase 69 U/L (34-104) 07/03/17 08:50 Creatine Kinase 168 U/L (30-223) 07/02/17 13:33 Troponin I < 0.01 ng/mL (0.01-0.05) L 07/02/17 13:33 C-Reactive Protein 0.7 mg/dL (0.0-0.9) 07/02/17 13:33 B-Natriuretic Peptide < 5.0 pg/mL (5.0-100.0) L 07/02/17 13:33 Total Protein 6.2 gm/dL (6.0-8.3) 07/03/17 08:50 Albumin 3.3 gm/dL (4.2-5.5) L 07/03/17 08:50 Globulin 2.9 gm/dL 07/03/17 08:50 Albumin/Globulin Ratio 1.1 (1.0-1.8) 07/03/17 08:50 Triglycerides 78 mg/dL (<150) 07/02/17 13:33 Cholesterol 111 mg/dL (<200) 07/02/17 13:33 LDL Cholesterol Direct 63 mg/dL (75-193) L 07/02/17 13:33 HDL Cholesterol 36 mg/dL (23-92) 07/02/17 13:33 Urine Source CLEAN C 07/02/17 14:21 Urine Color YELLOW 07/02/17 14:21 Urine Clarity CLOUDY (CLEAR) 07/02/17 14:21 Urine pH 6.0 (4.6 - 8.0) 07/02/17 14:21 Ur Specific [place] 1.025 (1.005-1.030) 07/02/17 14:21 Urine Protein 100 mg/dL (NEGATIVE) H 07/02/17 14:21 Urine Glucose (UA) NEGATIVE mg/dL (NEGATIVE) 07/02/17 14:21 Urine Ketones NEGATIVE mg/dL (NEGATIVE) 07/02/17 14:21 Urine Blood SMALL (NEGATIVE) H 07/02/17 14:21 Urine Nitrate NEGATIVE (NEGATIVE) 07/02/17 14:21 Urine Bilirubin NEGATIVE (NEGATIVE) 07/02/17 14:21 Urine Urobilinogen 0.2 E.U./dL (0.2 - 1.0) 07/02/17 14:21 Ur Leukocyte Esterase MODERATE (NEGATIVE) H 07/02/17 14:21 Urine RBC 2-5 /hpf (0-5) H 07/02/17 14:21 Urine WBC >100 /hpf (0-5) H 07/02/17 14:21 Ur Epithelial Cells FEW /lpf (FEW) 07/02/17 14:21 Urine Bacteria MANY /hpf (NONE SEEN) 07/02/17 14:21 - Physical Exam Vitals and I&O: Vital Signs Temp 97.8 F 07/04/17 11:48 Pulse 83 07/04/17 11:48 Resp 18 07/04/17 11:48 BP 145/90 07/04/17 11:48 Pulse Ox 98 07/04/17 11:48 Intake & Output 07/03/17 07/04/17 07/04/17 18:59 06:59 18:59 Intake Total 1050 761.667 Output Total 1600 Balance 1050 -838.333 Weight (lbs) 77.819 kg Intake: Intake, IV Amount 1050 761.667 D5-0.45NS 1,000 ml @ 100 1000 761.667 mls/hr IV .Q10H [facility] Rx#: [id number] cefTRIAXone 1 gm In 50 Sodium Chloride 0.9% 50 ml @ 100 mls/hr IV Q24HR@ 0900 [facility] Rx#:[id number] Output: Urine 1600 Other: # Bowel Movements 0 Active Medications: Current Medications Acetaminophen (Tylenol) 650 mg PO Q4H PRN PRN Reason: fever Stop: 08/31/17 15:52 Acetaminophen/Hydrocodone Bitart ([place] 10 Mg/325 Mg) 1 tab PO Q6H PRN PRN Reason: Severe Pain Stop: 08/31/17 16:59 Heparin Sodium (Porcine) (Heparin) 5,000 units SUBQ Q12HR [facility] Stop: 09/01/17 20:59 Last Admin: 07/04/17 11:33 Dose: 5,000 units Dextrose/Sodium Chloride (D5-0.45ns) 1,000 mls @ 100 mls/hr IV .Q10H [facility] Stop: 08/31/17 17:14 Last Admin: 07/04/17 02:06 Dose: 100 mls/hr Ceftriaxone Sodium 1 gm/ (Sodium Chloride) 50 mls @ 100 mls/hr IV Q24HR@0900 [facility] Stop: 09/01/17 11:59 Last Admin: 07/04/17 11:33 Dose: 100 mls/hr Ibuprofen (Motrin) 800 mg PO Q8H PRN PRN Reason: moderate pain Stop: 08/31/17 15:52 Insulin Aspart (Novolog Insulin Sliding Scale) 0 units SUBQ BID [facility] PRN Reason: Protocol Stop: 08/31/17 16:59 Last Admin: 07/04/17 11:42 Dose: Not Given Miscellaneous (Vte Chemical Prophylaxis Screen/ Admission) 1 ea [facility] PRN PRN PRN Reason: PROTOCOL Stop: 09/01/17 15:13 General: Alert (yes), Oriented x3 (yes), No acute distress (no) HEENT: Atraumatic, PERRLA, EOMI Neck: Supple Cardiovascular: Regular rate, Normal S1, Normal S2 Lungs: Clear to auscultation Abdomen: Bowel sounds (normal) Extremities: Clubbing (no), Cyanosis (no), Edema (no) Neurological: Other (left sided weakness, and slurred speech) Skin: Other (old lesions on the left arm) Assessment/Plan - Problem List Patient Problems: All Active Problems R/O UTI, POOR ORAL INTAKE (Acute) - Assessment Assessment: Current Active Problems Problem Status Onset R/O UTI, POOR ORAL INTAKE Acute 1. UTI /Pyelonephritis 2. Pseudomonas aeruginosa positive urine culture 3 Dehydration 4. History of CVA 5. Recent history of UTI 6. Spinal stenosis - Plan Plan: continue fluid management antibiotics as per ID ID consult Dr Matt Pepe Diet soft mechanical, feeder 1:1 Urine culture to follow
[2017-07-04] MEDS: Levofloxacin 500mg/100mL 500 MG/100 ML BAG IV SCH (15:21)
[2017-07-05] MEDS: D5-0.45NS 1,000 ML IV SCH ×2 (05:35→18:42)
--- NOTE | 2017-07-05 08:33 | General Progress Note ---
Subjective - Review of Systems Service Date: 07/05/17 Subjective: Awake, alert, lying in the bed, NAD Objective - Results Result Diagrams: 07/03/17 08:50 07/03/17 08:50 Recent Labs: Laboratory Last Values WBC 4.8 Th/cmm (4.8-10.8) 07/03/17 08:50 RBC 4.29 Mil/cmm (4.30-5.70) L 07/03/17 08:50 Hgb 12.6 gm/dL (12-16) 07/03/17 08:50 Hct 36.8 % (41.0-60) L 07/03/17 08:50 MCV 85.6 fl (80-99) 07/03/17 08:50 MCH 29.2 pg (26.0-30.0) 07/03/17 08:50 MCHC Differential 34.1 pg (28.0-36.0) 07/03/17 08:50 RDW 13.1 % (11.5-20.0) 07/03/17 08:50 Plt Count 276 Th/cmm (150-400) 07/03/17 08:50 MPV 7.4 fl 07/03/17 08:50 Neutrophils % 55.1 % (40.0-80.0) 07/03/17 08:50 Lymphocytes % 30.7 % (20.0-50.0) 07/03/17 08:50 Monocytes % 6.3 % (2.0-10.0) 07/03/17 08:50 Eosinophils % 5.2 % (0.0-5.0) H 07/03/17 08:50 Basophils % 2.7 % (0.0-2.0) H 07/03/17 08:50 PT 12.8 SECONDS (9.5-11.5) H 07/02/17 13:33 INR 1.22 (0.5-1.4) 07/02/17 13:33 PTT (Actin FS) 27.6 SECONDS (26.0-38.0) 07/02/17 13:33 Sodium 138 mEq/L (136-145) 07/03/17 08:50 Potassium 3.7 mEq/L (3.5-5.1) 07/03/17 08:50 Chloride 106 mEq/L (98-107) 07/03/17 08:50 Carbon Dioxide 28.2 mEq/L (21.0-31.0) 07/03/17 08:50 Anion Gap 7.5 (7.0-16.0) 07/03/17 08:50 BUN 22 mg/dL (7-25) 07/03/17 08:50 Creatinine 0.8 mg/dL (0.7-1.3) 07/03/17 08:50 Est GFR ( Amer) > 60.0 ml/min (>90) 07/03/17 08:50 Est GFR (Non-Af Amer) > 60.0 ml/min 07/03/17 08:50 BUN/Creatinine Ratio 27.5 07/03/17 08:50 Glucose 134 mg/dL (70-105) H 07/03/17 08:50 POC Glucose 109 MG/DL (70 - 105) H 07/03/17 18:36 Whole Bld Lactic Acid 0.58 mmol/L (0.60-1.99) L 07/02/17 13:33 Calcium 8.9 mg/dL (8.6-10.3) 07/03/17 08:50 Total Bilirubin 0.8 mg/dL (0.3-1.0) 07/03/17 08:50 AST 27 U/L (13-39) 07/03/17 08:50 ALT 34 U/L (7-52) 07/03/17 08:50 Alkaline Phosphatase 69 U/L (34-104) 07/03/17 08:50 Creatine Kinase 168 U/L (30-223) 07/02/17 13:33 Troponin I < 0.01 ng/mL (0.01-0.05) L 07/02/17 13:33 C-Reactive Protein 0.7 mg/dL (0.0-0.9) 07/02/17 13:33 B-Natriuretic Peptide < 5.0 pg/mL (5.0-100.0) L 07/02/17 13:33 Total Protein 6.2 gm/dL (6.0-8.3) 07/03/17 08:50 Albumin 3.3 gm/dL (4.2-5.5) L 07/03/17 08:50 Globulin 2.9 gm/dL 07/03/17 08:50 Albumin/Globulin Ratio 1.1 (1.0-1.8) 07/03/17 08:50 Triglycerides 78 mg/dL (<150) 07/02/17 13:33 Cholesterol 111 mg/dL (<200) 07/02/17 13:33 LDL Cholesterol Direct 63 mg/dL (75-193) L 07/02/17 13:33 HDL Cholesterol 36 mg/dL (23-92) 07/02/17 13:33 Urine Source CLEAN C 07/02/17 14:21 Urine Color YELLOW 07/02/17 14:21 Urine Clarity CLOUDY (CLEAR) 07/02/17 14:21 Urine pH 6.0 (4.6 - 8.0) 07/02/17 14:21 Ur Specific [place] 1.025 (1.005-1.030) 07/02/17 14:21 Urine Protein 100 mg/dL (NEGATIVE) H 07/02/17 14:21 Urine Glucose (UA) NEGATIVE mg/dL (NEGATIVE) 07/02/17 14:21 Urine Ketones NEGATIVE mg/dL (NEGATIVE) 07/02/17 14:21 Urine Blood SMALL (NEGATIVE) H 07/02/17 14:21 Urine Nitrate NEGATIVE (NEGATIVE) 07/02/17 14:21 Urine Bilirubin NEGATIVE (NEGATIVE) 07/02/17 14:21 Urine Urobilinogen 0.2 E.U./dL (0.2 - 1.0) 07/02/17 14:21 Ur Leukocyte Esterase MODERATE (NEGATIVE) H 07/02/17 14:21 Urine RBC 2-5 /hpf (0-5) H 07/02/17 14:21 Urine WBC >100 /hpf (0-5) H 07/02/17 14:21 Ur Epithelial Cells FEW /lpf (FEW) 07/02/17 14:21 Urine Bacteria MANY /hpf (NONE SEEN) 07/02/17 14:21 - Physical Exam Vitals and I&O: Vital Signs Temp 98.5 F 07/05/17 08:00 Pulse 76 07/05/17 08:00 Resp 19 07/05/17 08:00 BP 140/86 07/05/17 08:00 Pulse Ox 99 07/05/17 08:00 Intake & Output 07/04/17 07/05/17 07/05/17 18:59 06:59 18:59 Intake Total 1500 1398.333 Output Total 1450 2200 Balance 50 -801.667 Weight (lbs) 77.564 kg 80.541 kg Intake: Intake, IV Amount 1000 1398.333 D5-0.45NS 1,000 ml @ 100 1000 1398.333 mls/hr IV .Q10H [facility] Rx#: [id number] Oral 500 Output: Urine 1450 2200 Stool 0 Other: Stool Characteristics Soft Active Medications: Current Medications Acetaminophen (Tylenol) 650 mg PO Q4H PRN PRN Reason: fever Stop: 08/31/17 15:52 Acetaminophen/Hydrocodone Bitart ([place] 10 Mg/325 Mg) 1 tab PO Q6H PRN PRN Reason: Severe Pain Stop: 08/31/17 16:59 Heparin Sodium (Porcine) (Heparin) 5,000 units SUBQ Q12HR [facility] Stop: 09/01/17 20:59 Last Admin: 07/04/17 21:48 Dose: 5,000 units Dextrose/Sodium Chloride (D5-0.45ns) 1,000 mls @ 100 mls/hr IV .Q10H [facility] Stop: 08/31/17 17:14 Last Admin: 07/05/17 05:35 Dose: 100 mls/hr Ceftriaxone Sodium 1 gm/ (Sodium Chloride) 50 mls @ 100 mls/hr IV Q24HR@0900 [facility] Stop: 09/01/17 11:59 Last Admin: 07/04/17 11:33 Dose: 100 mls/hr Levofloxacin (Levaquin Pb) 500 mg in 100 mls @ 100 mls/hr IV Q24HR [facility] Stop: 09/02/17 13:59 Last Admin: 07/04/17 15:21 Dose: 100 mls/hr Ibuprofen (Motrin) 800 mg PO Q8H PRN PRN Reason: moderate pain Stop: 08/31/17 15:52 Insulin Aspart (Novolog Insulin Sliding Scale) 0 units SUBQ BID [facility] PRN Reason: Protocol Stop: 08/31/17 16:59 Last Admin: 07/04/17 11:42 Dose: Not Given Miscellaneous (Vte Chemical Prophylaxis Screen/ Admission) 1 ea [facility] PRN PRN PRN Reason: PROTOCOL Stop: 09/01/17 15:13 General: Alert (yes), Oriented x3 (yes), No acute distress (no) HEENT: Atraumatic, PERRLA, EOMI Neck: Supple Cardiovascular: Regular rate, Normal S1, Normal S2 Lungs: Clear to auscultation Abdomen: Bowel sounds (normal) Extremities: Clubbing (no), Cyanosis (no), Edema (no) Neurological: Other (left sided weakness, and slurred speech) Skin: Other (old lesions on the left arm) Assessment/Plan - Problem List Patient Problems: All Active Problems R/O UTI, POOR ORAL INTAKE (Acute) - Assessment Assessment: Current Active Problems Problem Status Onset R/O UTI, POOR ORAL INTAKE Acute 1. UTI /Pyelonephritis 2. Pseudomonas aeruginosa positive urine culture 3 Dehydration 4. History of CVA 5. Recent history of UTI 6. Spinal stenosis - Plan Plan: continue the present management. Discharge planning in progress
[2017-07-05] MEDS: cefTRIAXone 1 GM in Sodium Chloride 0.9% 50 ML IV SCH (09:50)
[2017-07-05] MEDS: INSULIN ASPART SLIDING SCALE 100 UNITS/ML UNIT SUBQ SCH ×3 (10:00→17:13)
--- NOTE | 2017-07-05 10:09 | Infectious Disease Prog Note ---
Infectious Disease Subjective - Review of Systems Service Date: 07/05/17 Events since last encounter: None. Subjective: No fever. Infectious Disease Objective - Results Result Diagrams: 07/03/17 08:50 07/03/17 08:50 Recent Labs: Laboratory Last Values WBC 4.8 Th/cmm (4.8-10.8) 07/03/17 08:50 RBC 4.29 Mil/cmm (4.30-5.70) L 07/03/17 08:50 Hgb 12.6 gm/dL (12-16) 07/03/17 08:50 Hct 36.8 % (41.0-60) L 07/03/17 08:50 MCV 85.6 fl (80-99) 07/03/17 08:50 MCH 29.2 pg (26.0-30.0) 07/03/17 08:50 MCHC Differential 34.1 pg (28.0-36.0) 07/03/17 08:50 RDW 13.1 % (11.5-20.0) 07/03/17 08:50 Plt Count 276 Th/cmm (150-400) 07/03/17 08:50 MPV 7.4 fl 07/03/17 08:50 Neutrophils % 55.1 % (40.0-80.0) 07/03/17 08:50 Lymphocytes % 30.7 % (20.0-50.0) 07/03/17 08:50 Monocytes % 6.3 % (2.0-10.0) 07/03/17 08:50 Eosinophils % 5.2 % (0.0-5.0) H 07/03/17 08:50 Basophils % 2.7 % (0.0-2.0) H 07/03/17 08:50 PT 12.8 SECONDS (9.5-11.5) H 07/02/17 13:33 INR 1.22 (0.5-1.4) 07/02/17 13:33 PTT (Actin FS) 27.6 SECONDS (26.0-38.0) 07/02/17 13:33 Sodium 138 mEq/L (136-145) 07/03/17 08:50 Potassium 3.7 mEq/L (3.5-5.1) 07/03/17 08:50 Chloride 106 mEq/L (98-107) 07/03/17 08:50 Carbon Dioxide 28.2 mEq/L (21.0-31.0) 07/03/17 08:50 Anion Gap 7.5 (7.0-16.0) 07/03/17 08:50 BUN 22 mg/dL (7-25) 07/03/17 08:50 Creatinine 0.8 mg/dL (0.7-1.3) 07/03/17 08:50 Est GFR ( Amer) > 60.0 ml/min (>90) 07/03/17 08:50 Est GFR (Non-Af Amer) > 60.0 ml/min 07/03/17 08:50 BUN/Creatinine Ratio 27.5 07/03/17 08:50 Glucose 134 mg/dL (70-105) H 07/03/17 08:50 POC Glucose 109 MG/DL (70 - 105) H 07/03/17 18:36 Whole Bld Lactic Acid 0.58 mmol/L (0.60-1.99) L 07/02/17 13:33 Calcium 8.9 mg/dL (8.6-10.3) 07/03/17 08:50 Total Bilirubin 0.8 mg/dL (0.3-1.0) 07/03/17 08:50 AST 27 U/L (13-39) 07/03/17 08:50 ALT 34 U/L (7-52) 07/03/17 08:50 Alkaline Phosphatase 69 U/L (34-104) 07/03/17 08:50 Creatine Kinase 168 U/L (30-223) 07/02/17 13:33 Troponin I < 0.01 ng/mL (0.01-0.05) L 07/02/17 13:33 C-Reactive Protein 0.7 mg/dL (0.0-0.9) 07/02/17 13:33 B-Natriuretic Peptide < 5.0 pg/mL (5.0-100.0) L 07/02/17 13:33 Total Protein 6.2 gm/dL (6.0-8.3) 07/03/17 08:50 Albumin 3.3 gm/dL (4.2-5.5) L 07/03/17 08:50 Globulin 2.9 gm/dL 07/03/17 08:50 Albumin/Globulin Ratio 1.1 (1.0-1.8) 07/03/17 08:50 Triglycerides 78 mg/dL (<150) 07/02/17 13:33 Cholesterol 111 mg/dL (<200) 07/02/17 13:33 LDL Cholesterol Direct 63 mg/dL (75-193) L 07/02/17 13:33 HDL Cholesterol 36 mg/dL (23-92) 07/02/17 13:33 Urine Source CLEAN C 07/02/17 14:21 Urine Color YELLOW 07/02/17 14:21 Urine Clarity CLOUDY (CLEAR) 07/02/17 14:21 Urine pH 6.0 (4.6 - 8.0) 07/02/17 14:21 Ur Specific [place] 1.025 (1.005-1.030) 07/02/17 14:21 Urine Protein 100 mg/dL (NEGATIVE) H 07/02/17 14:21 Urine Glucose (UA) NEGATIVE mg/dL (NEGATIVE) 07/02/17 14:21 Urine Ketones NEGATIVE mg/dL (NEGATIVE) 07/02/17 14:21 Urine Blood SMALL (NEGATIVE) H 07/02/17 14:21 Urine Nitrate NEGATIVE (NEGATIVE) 07/02/17 14:21 Urine Bilirubin NEGATIVE (NEGATIVE) 07/02/17 14:21 Urine Urobilinogen 0.2 E.U./dL (0.2 - 1.0) 07/02/17 14:21 Ur Leukocyte Esterase MODERATE (NEGATIVE) H 07/02/17 14:21 Urine RBC 2-5 /hpf (0-5) H 07/02/17 14:21 Urine WBC >100 /hpf (0-5) H 07/02/17 14:21 Ur Epithelial Cells FEW /lpf (FEW) 07/02/17 14:21 Urine Bacteria MANY /hpf (NONE SEEN) 07/02/17 14:21 - Physical Exam Vitals and I&O: Vital Signs Temp 98.5 F 07/05/17 08:00 Pulse 76 07/05/17 08:00 Resp 19 07/05/17 08:00 BP 140/86 07/05/17 08:00 Pulse Ox 99 07/05/17 08:00 Intake & Output 10/18/17 10/19/17 10/19/17 18:59 06:59 18:59 Intake Total 1550 1398.333 Output Total 1450 2200 Balance 100 -801.667 Weight (lbs) 77.564 kg 80.541 kg Intake: Intake, IV Amount 1050 1398.333 D5-0.45NS 1,000 ml @ 100 1000 1398.333 mls/hr IV .Q10H [facility] Rx#: [id number] cefTRIAXone 1 gm In 50 Sodium Chloride 0.9% 50 ml @ 100 mls/hr IV Q24HR@ 0900 [facility] Rx#:[id number] Oral 500 Output: Urine 1450 2200 Stool 0 Other: Stool Characteristics Soft Active Medications: Current Medications Acetaminophen (Tylenol) 650 mg PO Q4H PRN PRN Reason: fever Stop: 08/31/17 15:52 Acetaminophen/Hydrocodone Bitart ([place] 10 Mg/325 Mg) 1 tab PO Q6H PRN PRN Reason: Severe Pain Stop: 08/31/17 16:59 Heparin Sodium (Porcine) (Heparin) 5,000 units SUBQ Q12HR [facility] Stop: 09/01/17 20:59 Last Admin: 07/05/17 09:50 Dose: 5,000 units Dextrose/Sodium Chloride (D5-0.45ns) 1,000 mls @ 100 mls/hr IV .Q10H [facility] Stop: 08/31/17 17:14 Last Admin: 07/05/17 05:35 Dose: 100 mls/hr Ceftriaxone Sodium 1 gm/ (Sodium Chloride) 50 mls @ 100 mls/hr IV Q24HR@0900 [facility] Stop: 09/01/17 11:59 Last Admin: 07/05/17 09:50 Dose: 100 mls/hr Levofloxacin (Levaquin Pb) 500 mg in 100 mls @ 100 mls/hr IV Q24HR [facility] Stop: 09/02/17 13:59 Last Admin: 07/04/17 15:21 Dose: 100 mls/hr Ibuprofen (Motrin) 800 mg PO Q8H PRN PRN Reason: moderate pain Stop: 08/31/17 15:52 Insulin Aspart (Novolog Insulin Sliding Scale) 0 units SUBQ BID [facility] PRN Reason: Protocol Stop: 08/31/17 16:59 Last Admin: 07/05/17 10:02 Dose: Not Given Miscellaneous (Vte Chemical Prophylaxis Screen/ Admission) 1 [facility] PRN PRN PRN Reason: PROTOCOL Stop: 09/01/17 15:13 General: no acute distress, well developed, well nourished HEENT: atraumatic, normocephalic, PERRLA Neck: supple, no thyromegaly Cardiovascular: S1S2, regular Lungs: clear to auscultation bilaterally, clear to percussion Abdomen: soft, no tender, no distended, no hepatomegaly, no splenomegaly Extremities: no cyanosis, no clubbing, no edema Neurological: awake, alert Skin: intact Infectious Disease Assmt/Plan - Problem List Patient Problems: All Active Problems R/O UTI, POOR ORAL INTAKE (Acute) - Assessment Assessment: 1. UTI. Pyelonephritis. 2. Generalized weakness. 3. Diabetes mellitus type 2. 4. Hypertension. 5. History of CVA. 6. Rash, itchy, suspect scabies. - Plan Plan: antibiotics changed to Levaquin, which can be changed to po for total 7 days. dc planning.
[2017-07-05] MEDS ORDERED: Probiotic Screen MC PRN (11:15)
[2017-07-05] MEDS: Levofloxacin 500mg/100mL 500 MG/100 ML BAG IV SCH (16:58)
[2017-07-06 05:13] LABS: % EOSINOPHILS 6.1 % (0.0-5.0); % LYMPHOCYTES 42.5 % (20.0-50.0); % MONOCYTES 3.2 % (2.0-10.0); % NEUTROPHILS 44.2 % (40.0-80.0); MEAN CELL VOLUME 86.4 fl (80-99); MEAN CORPUSCULAR HEMOGLOBIN 28.9 pg (26.0-30.0); MEAN CORPUSCULAR HGB CONC 33.5 pg (28.0-36.0); MEAN PLATELET VOLUME 7.9 fl; NEUTROPHILE ABSOLUTE 1.8 Th/cmm (1.8-8.0); PLATELET COUNT 264 Th/cmm (150-400); RED BLOOD COUNT 4.51 Mil/cmm (4.30-5.70); WHITE BLOOD COUNT 4.1 Th/cmm (4.8-10.8)
[2017-07-06 05:29] LABS: ANION GAP 7.8 (7.0-16.0); BUN - UREA NITROGEN 12 mg/dL (7-25); BUN/CREATININE RATIO 13.3; CALCIUM SERUM 8.9 mg/dL (8.6-10.3); CHLORIDE 107 mEq/L (98-107); CREATININE - SERUM 0.9 mg/dL (0.7-1.3); GLUCOSE 106 mg/dL (70-105); POTASSIUM SERUM 3.8 mEq/L (3.5-5.1); SODIUM SERUM 138 mEq/L (136-145)
[2017-07-06] MEDS: D5-0.45NS 1,000 ML IV SCH (05:49)
[2017-07-06] MEDS: INSULIN ASPART SLIDING SCALE 100 UNITS/ML UNIT SUBQ SCH ×2 (08:55→17:03)
[2017-07-06] MEDS ORDERED: Lactobacillus Rhamnosus 10 Billion CFU Capsule PO SCH (09:00)
[2017-07-06] MEDS: cefTRIAXone 1 GM in Sodium Chloride 0.9% 50 ML IV SCH (11:23)
--- NOTE | 2017-07-06 13:03 | Infectious Disease Prog Note ---
Infectious Disease Subjective - Review of Systems Service Date: 07/06/17 Subjective: No fever. Infectious Disease Objective - Results Result Diagrams: 07/06/17 04:41 07/06/17 04:41 Recent Labs: Laboratory Last Values WBC 4.1 Th/cmm (4.8-10.8) L 07/06/17 04:41 RBC 4.51 Mil/cmm (4.30-5.70) 07/06/17 04:41 Hgb 13.0 gm/dL (12-16) 07/06/17 04:41 Hct 39.0 % (41.0-60) L 07/06/17 04:41 MCV 86.4 fl (80-99) 07/06/17 04:41 MCH 28.9 pg (26.0-30.0) 07/06/17 04:41 MCHC Differential 33.5 pg (28.0-36.0) 07/06/17 04:41 RDW 13.0 % (11.5-20.0) 07/06/17 04:41 Plt Count 264 Th/cmm (150-400) 07/06/17 04:41 MPV 7.9 fl 07/06/17 04:41 Neutrophils % 44.2 % (40.0-80.0) 07/06/17 04:41 Lymphocytes % 42.5 % (20.0-50.0) 07/06/17 04:41 Monocytes % 3.2 % (2.0-10.0) 07/06/17 04:41 Eosinophils % 6.1 % (0.0-5.0) H 07/06/17 04:41 Basophils % 4.0 % (0.0-2.0) H 07/06/17 04:41 PT 12.8 SECONDS (9.5-11.5) H 07/02/17 13:33 INR 1.22 (0.5-1.4) 07/02/17 13:33 PTT (Actin FS) 27.6 SECONDS (26.0-38.0) 07/02/17 13:33 Sodium 138 mEq/L (136-145) 07/06/17 04:41 Potassium 3.8 mEq/L (3.5-5.1) 07/06/17 04:41 Chloride 107 mEq/L (98-107) 07/06/17 04:41 Carbon Dioxide 27.0 mEq/L (21.0-31.0) 07/06/17 04:41 Anion Gap 7.8 (7.0-16.0) 07/06/17 04:41 BUN 12 mg/dL (7-25) 07/06/17 04:41 Creatinine 0.9 mg/dL (0.7-1.3) 07/06/17 04:41 Est GFR ( Amer) > 60.0 ml/min (>90) 07/06/17 04:41 Est GFR (Non-Af Amer) > 60.0 ml/min 07/06/17 04:41 BUN/Creatinine Ratio 13.3 07/06/17 04:41 Glucose 106 mg/dL (70-105) H 07/06/17 04:41 POC Glucose 116 MG/DL (70 - 105) H 07/06/17 08:53 Whole Bld Lactic Acid 0.58 mmol/L (0.60-1.99) L 07/02/17 13:33 Calcium 8.9 mg/dL (8.6-10.3) 07/06/17 04:41 Total Bilirubin 0.8 mg/dL (0.3-1.0) 07/03/17 08:50 AST 27 U/L (13-39) 07/03/17 08:50 ALT 34 U/L (7-52) 07/03/17 08:50 Alkaline Phosphatase 69 U/L (34-104) 07/03/17 08:50 Creatine Kinase 168 U/L (30-223) 07/02/17 13:33 Troponin I < 0.01 ng/mL (0.01-0.05) L 07/02/17 13:33 C-Reactive Protein 0.7 mg/dL (0.0-0.9) 07/02/17 13:33 B-Natriuretic Peptide < 5.0 pg/mL (5.0-100.0) L 07/02/17 13:33 Total Protein 6.2 gm/dL (6.0-8.3) 07/03/17 08:50 Albumin 3.3 gm/dL (4.2-5.5) L 07/03/17 08:50 Globulin 2.9 gm/dL 07/03/17 08:50 Albumin/Globulin Ratio 1.1 (1.0-1.8) 07/03/17 08:50 Triglycerides 78 mg/dL (<150) 07/02/17 13:33 Cholesterol 111 mg/dL (<200) 07/02/17 13:33 LDL Cholesterol Direct 63 mg/dL (75-193) L 07/02/17 13:33 HDL Cholesterol 36 mg/dL (23-92) 07/02/17 13:33 Urine Source CLEAN C 07/02/17 14:21 Urine Color YELLOW 07/02/17 14:21 Urine Clarity CLOUDY (CLEAR) 07/02/17 14:21 Urine pH 6.0 (4.6 - 8.0) 07/02/17 14:21 Ur Specific [place] 1.025 (1.005-1.030) 07/02/17 14:21 Urine Protein 100 mg/dL (NEGATIVE) H 07/02/17 14:21 Urine Glucose (UA) NEGATIVE mg/dL (NEGATIVE) 07/02/17 14:21 Urine Ketones NEGATIVE mg/dL (NEGATIVE) 07/02/17 14:21 Urine Blood SMALL (NEGATIVE) H 07/02/17 14:21 Urine Nitrate NEGATIVE (NEGATIVE) 07/02/17 14:21 Urine Bilirubin NEGATIVE (NEGATIVE) 07/02/17 14:21 Urine Urobilinogen 0.2 E.U./dL (0.2 - 1.0) 07/02/17 14:21 Ur Leukocyte Esterase MODERATE (NEGATIVE) H 07/02/17 14:21 Urine RBC 2-5 /hpf (0-5) H 07/02/17 14:21 Urine WBC >100 /hpf (0-5) H 07/02/17 14:21 Ur Epithelial Cells FEW /lpf (FEW) 07/02/17 14:21 Urine Bacteria MANY /hpf (NONE SEEN) 07/02/17 14:21 - Physical Exam Vitals and I&O: Vital Signs Temp 97.8 F 07/06/17 12:00 Pulse 72 07/06/17 12:00 Resp 16 07/06/17 12:00 BP 135/87 07/06/17 12:00 Pulse Ox 98 07/06/17 12:00 Intake & Output 07/05/17 07/06/17 07/06/17 18:59 06:59 18:59 Intake Total 1050 1440 50 Output Total 1650 Balance 1050 -210 50 Weight (lbs) 80.649 kg Intake: Intake, IV Amount 1050 1100 50 D5-0.45NS 1,000 ml @ 100 1000 1000 mls/hr IV .Q10H [facility] Rx#: [id number] Levofloxacin 500mg/100mL 100 500 mg In 100 ml @ 100 mls/hr IV Q24HR [facility] Rx#: [id number] cefTRIAXone 1 gm In 50 50 Sodium Chloride 0.9% 50 ml @ 100 mls/hr IV Q24HR@ 0900 [facility] Rx#:[id number] Oral 340 Output: Urine 1650 Other: Stool Characteristics Soft Soft Soft Active Medications: Current Medications Acetaminophen (Tylenol) 650 mg PO Q4H PRN PRN Reason: fever Stop: 08/31/17 15:52 Acetaminophen/Hydrocodone Bitart ([place] 10 Mg/325 Mg) 1 tab PO Q6H PRN PRN Reason: Severe Pain Stop: 08/31/17 16:59 Heparin Sodium (Porcine) (Heparin) 5,000 units SUBQ Q12HR [facility] Stop: 09/01/17 20:59 Last Admin: 07/06/17 09:54 Dose: 5,000 units Dextrose/Sodium Chloride (D5-0.45ns) 1,000 mls @ 100 mls/hr IV .Q10H [facility] Stop: 08/31/17 17:14 Last Admin: 07/06/17 05:49 Dose: 100 mls/hr Ceftriaxone Sodium 1 gm/ (Sodium Chloride) 50 mls @ 100 mls/hr IV Q24HR@0900 [facility] Stop: 09/01/17 11:59 Last Infusion: 07/06/17 13:00 Dose: Infused Levofloxacin (Levaquin Pb) 500 mg in 100 mls @ 100 mls/hr IV Q24HR [facility] Stop: 09/02/17 13:59 Last Infusion: 07/05/17 19:38 Dose: Infused Ibuprofen (Motrin) 800 mg PO Q8H PRN PRN Reason: moderate pain Stop: 08/31/17 15:52 Insulin Aspart (Novolog Insulin Sliding Scale) 0 units SUBQ BID [facility] PRN Reason: Protocol Stop: 08/31/17 16:59 Last Admin: 07/06/17 08:55 Dose: Not Given Lactobacillus Rhamnosus (Culturelle) 1 each PO DAILY [facility] Stop: 09/04/17 08:59 Last Admin: 07/06/17 09:54 Dose: 1 each Miscellaneous (Vte Chemical Prophylaxis Screen/ Admission) 1 ea [facility] PRN PRN PRN Reason: PROTOCOL Stop: 09/01/17 15:13 Miscellaneous (Probiotic Screen) 1 ea [facility] PRN PRN PRN Reason: PROTOCOL Stop: 09/03/17 11:14 General: no acute distress, well developed, well nourished, cachectic HEENT: atraumatic, normocephalic, PERRLA Neck: supple, no thyromegaly Cardiovascular: S1S2, regular Lungs: clear to auscultation bilaterally, clear to percussion Abdomen: soft, no tender, no distended, no mass Extremities: no cyanosis, no clubbing Neurological: awake, alert, oriented Skin: intact Infectious Disease Assmt/Plan - Problem List Patient Problems: All Active Problems R/O UTI, POOR ORAL INTAKE (Acute) - Assessment Assessment: 1. UTI. Pyelonephritis. 2. Generalized weakness. 3. Diabetes mellitus type 2. 4. Hypertension. 5. History of CVA. 6. Rash, itchy, suspect scabies treated. - Plan Plan: antibiotics changed to Levaquin, which can be changed to po for total 7 days. dc planning. can be discharged to the facility as per Delio.
--- NOTE | 2017-07-06 14:38 | General Progress Note ---
Subjective - Review of Systems Service Date: 07/06/17 Subjective: Awake, alert, lying in the bed, NAD. Afebrile, needs a feeder due to weakness on his left side, as a sequele of his stroke. Objective - Results Result Diagrams: 07/06/17 04:41 07/06/17 04:41 Recent Labs: Laboratory Last Values WBC 4.1 Th/cmm (4.8-10.8) L 07/06/17 04:41 RBC 4.51 Mil/cmm (4.30-5.70) 07/06/17 04:41 Hgb 13.0 gm/dL (12-16) 07/06/17 04:41 Hct 39.0 % (41.0-60) L 07/06/17 04:41 MCV 86.4 fl (80-99) 07/06/17 04:41 MCH 28.9 pg (26.0-30.0) 07/06/17 04:41 MCHC Differential 33.5 pg (28.0-36.0) 07/06/17 04:41 RDW 13.0 % (11.5-20.0) 07/06/17 04:41 Plt Count 264 Th/cmm (150-400) 07/06/17 04:41 MPV 7.9 fl 07/06/17 04:41 Neutrophils % 44.2 % (40.0-80.0) 07/06/17 04:41 Lymphocytes % 42.5 % (20.0-50.0) 07/06/17 04:41 Monocytes % 3.2 % (2.0-10.0) 07/06/17 04:41 Eosinophils % 6.1 % (0.0-5.0) H 07/06/17 04:41 Basophils % 4.0 % (0.0-2.0) H 07/06/17 04:41 PT 12.8 SECONDS (9.5-11.5) H 07/02/17 13:33 INR 1.22 (0.5-1.4) 07/02/17 13:33 PTT (Actin FS) 27.6 SECONDS (26.0-38.0) 07/02/17 13:33 Sodium 138 mEq/L (136-145) 07/06/17 04:41 Potassium 3.8 mEq/L (3.5-5.1) 07/06/17 04:41 Chloride 107 mEq/L (98-107) 07/06/17 04:41 Carbon Dioxide 27.0 mEq/L (21.0-31.0) 07/06/17 04:41 Anion Gap 7.8 (7.0-16.0) 07/06/17 04:41 BUN 12 mg/dL (7-25) 07/06/17 04:41 Creatinine 0.9 mg/dL (0.7-1.3) 07/06/17 04:41 Est GFR ( Amer) > 60.0 ml/min (>90) 07/06/17 04:41 Est GFR (Non-Af Amer) > 60.0 ml/min 07/06/17 04:41 BUN/Creatinine Ratio 13.3 07/06/17 04:41 Glucose 106 mg/dL (70-105) H 07/06/17 04:41 POC Glucose 116 MG/DL (70 - 105) H 07/06/17 08:53 Whole Bld Lactic Acid 0.58 mmol/L (0.60-1.99) L 07/02/17 13:33 Calcium 8.9 mg/dL (8.6-10.3) 07/06/17 04:41 Total Bilirubin 0.8 mg/dL (0.3-1.0) 07/03/17 08:50 AST 27 U/L (13-39) 07/03/17 08:50 ALT 34 U/L (7-52) 07/03/17 08:50 Alkaline Phosphatase 69 U/L (34-104) 07/03/17 08:50 Creatine Kinase 168 U/L (30-223) 07/02/17 13:33 Troponin I < 0.01 ng/mL (0.01-0.05) L 07/02/17 13:33 C-Reactive Protein 0.7 mg/dL (0.0-0.9) 07/02/17 13:33 B-Natriuretic Peptide < 5.0 pg/mL (5.0-100.0) L 07/02/17 13:33 Total Protein 6.2 gm/dL (6.0-8.3) 07/03/17 08:50 Albumin 3.3 gm/dL (4.2-5.5) L 07/03/17 08:50 Globulin 2.9 gm/dL 07/03/17 08:50 Albumin/Globulin Ratio 1.1 (1.0-1.8) 07/03/17 08:50 Triglycerides 78 mg/dL (<150) 07/02/17 13:33 Cholesterol 111 mg/dL (<200) 07/02/17 13:33 LDL Cholesterol Direct 63 mg/dL (75-193) L 07/02/17 13:33 HDL Cholesterol 36 mg/dL (23-92) 07/02/17 13:33 Urine Source CLEAN C 07/02/17 14:21 Urine Color YELLOW 07/02/17 14:21 Urine Clarity CLOUDY (CLEAR) 07/02/17 14:21 Urine pH 6.0 (4.6 - 8.0) 07/02/17 14:21 Ur Specific [place] 1.025 (1.005-1.030) 07/02/17 14:21 Urine Protein 100 mg/dL (NEGATIVE) H 07/02/17 14:21 Urine Glucose (UA) NEGATIVE mg/dL (NEGATIVE) 07/02/17 14:21 Urine Ketones NEGATIVE mg/dL (NEGATIVE) 07/02/17 14:21 Urine Blood SMALL (NEGATIVE) H 07/02/17 14:21 Urine Nitrate NEGATIVE (NEGATIVE) 07/02/17 14:21 Urine Bilirubin NEGATIVE (NEGATIVE) 07/02/17 14:21 Urine Urobilinogen 0.2 E.U./dL (0.2 - 1.0) 07/02/17 14:21 Ur Leukocyte Esterase MODERATE (NEGATIVE) H 07/02/17 14:21 Urine RBC 2-5 /hpf (0-5) H 07/02/17 14:21 Urine WBC >100 /hpf (0-5) H 07/02/17 14:21 Ur Epithelial Cells FEW /lpf (FEW) 07/02/17 14:21 Urine Bacteria MANY /hpf (NONE SEEN) 07/02/17 14:21 - Physical Exam Vitals and I&O: Vital Signs Temp 97.5 F 07/06/17 12:00 Pulse 72 07/06/17 12:00 Resp 19 07/06/17 12:00 BP 145/87 07/06/17 12:00 Pulse Ox 98 07/06/17 12:00 Intake & Output 07/05/17 07/06/17 07/06/17 18:59 06:59 18:59 Intake Total 1050 1440 50 Output Total 1650 Balance 1050 -210 50 Weight (lbs) 80.649 kg Intake: Intake, IV Amount 1050 1100 50 D5-0.45NS 1,000 ml @ 100 1000 1000 mls/hr IV .Q10H [facility] Rx#: [id number] Levofloxacin 500mg/100mL 100 500 mg In 100 ml @ 100 mls/hr IV Q24HR [facility] Rx#: [id number] cefTRIAXone 1 gm In 50 50 Sodium Chloride 0.9% 50 ml @ 100 mls/hr IV Q24HR@ 0900 [facility] Rx#:[id number] Oral 340 Output: Urine 1650 Other: Stool Characteristics Soft Soft Soft Active Medications: Current Medications Acetaminophen (Tylenol) 650 mg PO Q4H PRN PRN Reason: fever Stop: 08/31/17 15:52 Acetaminophen/Hydrocodone Bitart ([place] 10 Mg/325 Mg) 1 tab PO Q6H PRN PRN Reason: Severe Pain Stop: 08/31/17 16:59 Heparin Sodium (Porcine) (Heparin) 5,[address] [facility] Stop: 09/01/17 20:59 Last Admin: 07/06/17 09:54 Dose: 5,000 units Dextrose/Sodium Chloride (D5-0.45ns) 1,000 mls @ 100 mls/hr IV .Q10H [facility] Stop: 08/31/17 17:14 Last Admin: 07/06/17 05:49 Dose: 100 mls/hr Levofloxacin (Levaquin Pb) 500 mg in 100 mls @ 100 mls/hr IV Q24HR [facility] Stop: 09/02/17 13:59 Last Infusion: 07/05/17 19:38 Dose: Infused Ibuprofen (Motrin) 800 mg PO Q8H PRN PRN Reason: moderate pain Stop: 08/31/17 15:52 Insulin Aspart (Novolog Insulin Sliding Scale) 0 units SUBQ BID [facility] PRN Reason: Protocol Stop: 08/31/17 16:59 Last Admin: 07/06/17 08:55 Dose: Not Given Lactobacillus Rhamnosus (Culturelle) [address] [facility] Stop: 09/04/17 08:59 Last Admin: 07/06/17 09:54 Dose: 1 each Miscellaneous (Vte Chemical Prophylaxis Screen/ Admission) 1 ea PRN PRN PRN Reason: PROTOCOL Stop: 09/01/17 15:13 Miscellaneous (Probiotic Screen) 1 ea PRN PRN PRN Reason: PROTOCOL Stop: 09/03/17 11:14 General: Alert (yes), Oriented x3 (yes), No acute distress (no) HEENT: Atraumatic, PERRLA, EOMI Neck: Supple Cardiovascular: Regular rate, Normal S1, Normal S2 Lungs: Clear to auscultation Abdomen: Bowel sounds (normal) Extremities: Clubbing (no), Cyanosis (no), Edema (no) Neurological: Other (left sided weakness, and slurred speech) Skin: Other (old lesions on the left arm) Assessment/Plan - Problem List Patient Problems: All Active Problems R/O UTI, POOR ORAL INTAKE (Acute) - Assessment Assessment: Current Active Problems Problem Status Onset R/O UTI, POOR ORAL INTAKE Acute 1. UTI /Pyelonephritis 2. Pseudomonas aeruginosa positive urine culture 3 Dehydration 4. History of CVA 5. Recent history of UTI 6. Spinal stenosis - Plan Plan: continue the present management. Discharge planning in progress D/W Ringoes sample case porter Betty .Patient to be transferred to the [facility] for further continuation of antibiotics and for further [placement Brother Karthik thinks that Noah's speech has become more slurred and requesting to do a follow up of his brain , with CT scan to see if he sufferred any recent stroke Nutritional Asmnt/Malnutr-PDOC - Dietary Evaluation Malnutrition Findings (Please click <Entered> for more info): Nutritional Asmnt/Malnutrition Start: 07/06/17 13: 12 Text: Status: Complete Freq: Document 07/06/17 13:12 DAVID (Rec: 07/06/17 13:24 DAVID QUEVEDO -[id number]) Nutritional Asmnt/Malnutrition Patient General Information Nutritional Screening Moderate Risk Screening Diagnosis UTI and generalized weakness Pertinent Medical Hx/Surgical Hx Stroke, HTN, DM, spinalstenosis, DM type 2, HTN per MD notes Subjective Information Pt seen resting in bed; appeared of tall stature and adequately-nourished. Pt reported that he is not hungry . Lunch tray seen untouched at bedside. Per RN, pt ate well yesterday, but doesn't seem to want to eat as much today. RD encouraged pt to try to increase appetite and continue to eat well at meal times for adequate nutrition. Pt appeared to have fair dentition. Pt reported no difficulty chewing/swallowing current diet. Per RN, pt requires assistance w/ meals. Pt reported urge for BM, and no BM yet today. Per RN, pt is pending placement for D/C planning. Per EMR, bowel sounds hyperacitve; abd is firm/soft/ non-tender. I/O: 2490/1650 (+ 840 ml) per 12 hours. Current diet is adequate and appropriate at this time. Pt is not appropriate for nutrition education. Current Diet Order/ Nutrition Support CCHO-60 gm, mechanical soft Patient / S.O Can Pertinent Medications D5%/NaCl IV at 100 ml/hr (408 kcal/day), culturelle, levaquin Pertinent Labs BG 106 H, POC BG 116 H, WBC 4. 1 L 07/03/17: ALB 3.3 L Nutritional Hx/Data Height 1.85 m Height (Calculated Centimeters) 185.4 Current Weight (lbs) 80.286 kg Weight (Calculated Kilograms) 80.3 Weight (Calculated Grams) 75034.8 [place] Body Weight 184 lb, 84 kg % [place] Body Weight 95 Recent Weight Change No Weight Status Approriate GI Symptoms GI Symptoms None Usual diet at home Regular per pt Skin Integrity/Comment: Generalized rashes per nursing notes Current %PO Fair (50-74%) Estimated Nutritional Goals BEE in Kcals: Using Current wt Calories/Kcals/Kg 25-30 kcal/kg CBW for maintenance Kcals Calculated 0548-8503 kcal/day Protein: Using Current wt Protein g/k.8-1 gm/kg CBW for maintenance Protein Calculated 64-80 gm/day Fluid: ml 2-2.4 L/day (1 ml/kcal/day for maintenance) Nutritional Problem 2. Problem Problem Inadequate nutritional intakes Etiology related to lack of appetite Signs/Symptoms: as evidenced by fair PO intake records. 1. Problem Problem Altered nutrition-related labs Etiology related to endocrine dysfunction Signs/Symptoms: as evidenced by elevated BG and POC BG lab values. Malnutrition Alert Is there a minimum of two criteria No selected? Query Text:Check all the applicable criteria. A minimum of two criteria are recommended for diagnosis of either severe or non-severe malnutrition. Malnutrition Related to Morbid Obesity Malnutrition related to morbid obesity No Intervention/Recommendation Recommendations by RD Increase Calorie Intake Comments * Recommend continuing CCHO-60 gm, mechanical soft diet per MD * Recommend encourage increase PO intakes Expected Outcomes/Goals Expected Outcomes/Goals - Monitor appetite and PO intakes w/ goal of pt meeting at least 75% of estimated nutritional needs, labs trending WNL, normal GI function, and skin integrity/ wt maintenance within 3-5 days 07/06/17 13:23 Dietitian Notes by Anthony Tellez. [facility] Room/Bed: [facility]30A Dietitian Recommendation * Recommend continuing CCHO-60 gm, mechanical soft diet per MD * Recommend encourage increase PO intakes Please refer to Nutrition Assessment for details. Initialized on 07/06/17 13:23 - END OF NOTE
[2017-07-06] MEDS: Levofloxacin 500mg/100mL 500 MG/100 ML BAG IV SCH (16:13)
== END 2017-07-06 20:15 | disposition short-term general hospital (02) | DRG 872 ==
LOC: ER 13:16 → MSI 15:10
PROVIDERS: ADMIT General Practice; ATTEND General Practice
DX: A41.9 Sepsis, unspecified organism (principal); I10 Essential (primary) hypertension; N12 Tubulo-interstitial nephritis, not specified as acute or chronic; E11.9 Type 2 diabetes mellitus without complications; B86 Scabies; R62.7 Adult failure to thrive; B96.5 Pseudomonas (aeruginosa) (mallei) (pseudomallei) as the cause of diseases classified elsewhere; E03.9 Hypothyroidism, unspecified; E86.0 Dehydration; Z74.01 Bed confinement status; Z83.3 Family history of diabetes mellitus; Z82.49 Family history of ischemic heart disease and other diseases of the circulatory system; Z86.73 Personal history of transient ischemic attack (TIA), and cerebral infarction without residual deficits
CPT/HCPCS: 36415-UA; 71010-TC; 76770-TC; 80048-TC; 80053-TC; 80061-TC; 81001-TC; 82550-TC; 82948-90; 83605; 83880-TC; 84484-TC; 85025-TC; 85610-TC; 85730-TC; 86141-TC; 87086-90; 93005; 94760; J0696; J1644; J1815; J1956; J7030; J7042